=== PATIENT | female | born 1950 | race Caucasian/White ===

== ENCOUNTER → 2017-01-18 | Outpatient (CLI) | payer OTHER | LOC: CIMAGING 09:40 | PROVIDERS: ATTEND Internal Medicine | DX: Z12.31 Encounter for screening mammogram for malignant neoplasm of breast (principal); Z80.3 Family history of malignant neoplasm of breast | CPT/HCPCS: G0202 ==

== ENCOUNTER 2017-08-06 15:16 | Emergency (ER) | payer OTHER ==
[2017-08-06 15:27] VITALS: RESP 18; TEMP 98.6
[2017-08-06] MEDS ORDERED: IPRATROPIUM/ALBUTEROL 3 ML DEYVIAL IH ONE (15:49)
--- NOTE | 2017-08-06 17:15 | EDPHY ---
H & P Time Seen by Provider: 08/06/17 15:21 HPI/ROS: 67-year-old female presents complaining of cough for approximately 3 days presents today requesting check for influenza. She came in today because she realized that Tamiflu is generally only indicated when symptoms have been less than 48 hr. She has had cough, nasal congestion, no fevers or chills. No history of asthma No nausea vomiting diarrhea Review of systems As per HPI General no fever no chills no weakness HEENT no eye pain no eye discharge. No eye redness, no sore throat Respiratory positive cough, positive cold symptoms, no shortness of breath Cardiac no chest pain, no peripheral edema GI no abdominal pain, no diarrhea, no constipation, no nausea, no vomiting no flank pain, no hematuria, no dysuria Musculoskeletal no myalgias, no joint pain Heme no easy bruising, no easy bleeding Endo no polyuria, no polydipsia Skin no rashes, no pruritus Neuro no syncope, no dizziness, no headaches Psych is no suicidal ideation, no homicidal ideation Past Medical/Surgical History: Social History: Denies alcohol or drug use Smoking Status: Never smoked Physical Exam: 67-year-old female Alert and oriented nontoxic appearance, no acute distress afebrile Atraumatic normocephalic Extraocular muscles intact, anicteric Nares mild yellowish discharge Oropharynx mild erythema no tonsillar swelling no exudate no uvular deviation, tolerating own secretions Neck supple no lymphadenopathy Lungs clear to auscultation bilaterally Heart regular rate and rhythm Abdomen normoactive bowel sounds soft nontender Extremities no cyanosis clubbing or edema Skin no rash Constitutional: Initial Vital Signs Temperature (C) 37 C 08/06/17 15:21 Heart Rate 75 08/06/17 15:21 Respiratory Rate 18 08/06/17 15:21 Blood Pressure 156/92 H 08/06/17 15:21 O2 Sat (%) 94 08/06/17 15:21 O2 Delivery Mode Room Air Allergies/Adverse Reactions: No Known Allergies Allergy (Verified 08/06/17 15:27) Home Medications: Medication Instructions Recorded Atorvastatin Calcium 09/10/15 Albuterol [Ventolin Hfa Inhaler] 2 puffs IH Q4 PRN #1 mdi 08/06/17 predniSONE 40 mg PO DAILY 4 Days #10 tablet 08/06/17 Medical Decision Making - Diagnostics Imaging Results: Imaging Impressions Chest X-Ray 08/06/17 15:50 Impression: Negative for infiltrate.. ED Course/Re-evaluation: Patient seen and evaluated for cough, cold symptoms concern of possible for influenza Influenza swab negative Chest x-ray negative Given DuoNeb, feels at help open up her lungs. Impression Bronchitis Plan Albuterol Prednisone burst OTC medications as needed Follow up with primary care physician Differential Diagnosis: URI, viral syndrome, influenza, pneumonia, bronchitis - Data Points Laboratory Results: 08/06/17 15:30 Influenza A,B Rapid NEGATIVE FOR FLU (NEGATIVE) Medications Given: Discontinued Medications Albuterol/Ipratropium (Duoneb) 3 ml IH EDNOW ONE Stop: 08/06/17 15:50 Last Admin: 08/06/17 16:10 Dose: 3 ml Departure - Departure Disposition: Home, Routine, Self-Care Clinical Impression: Bronchitis Condition: Good Instructions: Acute Bronchitis (ED) Referrals: Shiloh Flores MD [Primary Care Provider] - As per Instructions Prescriptions: Albuterol [Ventolin Hfa Inhaler] 2 puffs IH Q4 PRN #1 mdi PRN Reason: Cough, Moderate predniSONE 40 mg PO DAILY 4 Days #10 tablet
[2017-08-06 18:46] VITALS: BP 134/86; PULSE 91; O2SAT 95
== END 2017-08-06 17:25 | disposition home or self-care (01) ==
LOC: CED 15:16
DX: J40 Bronchitis, not specified as acute or chronic (principal)
CPT/HCPCS: 71046-PO; 87400-PO

== ENCOUNTER → 2017-11-21 | Outpatient (CLI) | payer OTHER | LOC: BRMIMAGING 12:58 | PROVIDERS: ATTEND Internal Medicine | DX: Z13.820 Encounter for screening for osteoporosis (principal); M85.89 Other specified disorders of bone density and structure, multiple sites; Z78.0 Asymptomatic menopausal state ==